=== PATIENT | female | born 1995 | race Caucasian/White ===

== ENCOUNTER 2017-01-04 14:08 | Emergency (ER) | payer OTHER ==
[~2017-01-04] VITALS: Ht 167.6 cm; Wt 90.7 kg
[2017-01-04 15:02] VITALS: BP 130/67
--- NOTE | 2017-01-04 16:27 | NUR ---
Patient transferred to bed 5 via wheelchair by tech. GARCIA evaluating patient at bedside.
--- NOTE | 2017-01-04 16:36 | NUR ---
Dr. Davis evaluating patient at bedside.
--- NOTE | 2017-01-04 16:38 | NUR ---
Patient being evaluated by Dr. Davis at bedside.
--- NOTE | 2017-01-04 16:39 | NUR ---
/ c/o left knee pain after a trip and fall while running yesterday. Patient states "I was running really fast, I was looking behind me and I tripped over a speed bump." c/o 05/26 pain to left knee, pain relieved with inactivity, worse with ambulation. Abrasions noted to bilateral knees. Psorasis silver, scaly lesions noted to bilateral lower extremities which is normal for the patient. Swelling noted to left knee, pain with movement. AOX4, unable to assess gait d/t pain with ambulation. Denies medical hx. VSS.
[2017-01-04] MEDS ORDERED: KETOROLAC 60 MG/2 ML VIAL IM ONE (16:45)
--- NOTE | 2017-01-04 17:25 | NUR ---
Chart checked and completed. The patient's care was reviewed and supervised by Amos Corral RN.
--- NOTE | 2017-01-04 17:25 | NUR ---
Patient discharged with v/s stable. Written and verbal after care instructions given and explained. Patient alert, oriented and verbalized understanding of instructions. Ambulatory with crutches. All questions addressed prior to discharge. ID band removed. Patient advised to follow up with PMD. Rx of TRAMADOL HYDROCHLORIDE 50MG TAB & IBUPROFEN 800MG TAB given. Patient educated on indication of medication including possible reaction and side effects. Opportunity to ask questions provided and answered.
[2017-01-04 17:29] VITALS: BP 130/90
== END 2017-01-04 17:25 | disposition home or self-care (01) ==
LOC: MED 14:08
DX: S80.02XA Contusion of left knee, initial encounter (principal); W18.30XA Fall on same level, unspecified, initial encounter; Y93.02 Activity, running; Y92.89 Other specified places as the place of occurrence of the external cause; Y99.8 Other external cause status
CPT/HCPCS: 73562; 90471; 90715; 96372; 99284; J1885